=== PATIENT | male | born 1965 | race Caucasian/White ===

== ENCOUNTER 2022-03-03 16:53 | Emergency (ER) | payer MEDICAID ==
[2022-03-03 18:13] LABS: ESTIMATED GFR 70 mL/min (>60)
[2022-03-03] MEDS: Ketorolac 30 MG/ML SDV IM ONE (19:02)
[2022-03-03] MEDS: Ketorolac 30 MG/ML SDV ONE (19:08)
[2022-03-03] MEDS: Sodium Chloride 0.9% 50 ML SDV FLUSH SCH (19:25)
[2022-03-03] MEDS: Iopamidol 612 MG/ML 100 ML Bottle IV PRN (19:25)
[2022-03-03] MEDS ORDERED: Naproxen 500 MG Tab ONE (20:00)
[2022-03-03] MEDS: Acetaminophen 500 MG Tab PO ONE (20:04)
[2022-03-03 20:43] VITALS: BP 156/99; PULSE 67
== END 2022-03-03 20:25 | disposition home or self-care (01) ==
LOC: LB.ED 16:53
DX: K86.0 Alcohol-induced chronic pancreatitis (principal)
CPT/HCPCS: 36415; 74177; 80053; 80307; 81003; 83690; 85025; 93005; 93010; 96372; 99283; 99284; A9270-GY; J1885; Q9967

== ENCOUNTER 2022-03-08 20:55 | Emergency (ER) | payer MEDICAID ==
[2022-03-08] MEDS ORDERED: HYDROmorphone 2 MG/ML Syringe IVPUSH ONE (21:09)
[2022-03-08] MEDS ORDERED: Ketorolac 30 MG/ML SDV IVPUSH ONE (21:09)
[2022-03-08] MEDS ORDERED: Ketorolac 30 MG/ML SDV ONE (21:37)
[2022-03-08] MEDS ORDERED: HYDROmorphone 2 MG/ML Syringe ONE (21:37)
== END 2022-03-08 22:24 | disposition home or self-care (01) ==
LOC: LB.ED 20:55
DX: R10.84 Generalized abdominal pain (principal); F17.210 Nicotine dependence, cigarettes, uncomplicated; Z79.899 Other long term (current) drug therapy
CPT/HCPCS: 36415; 80053; 80307; 81001; 83690; 85025; 96374; 96375; 99284; J1170; J1885

== ENCOUNTER 2022-03-17 00:24 | Emergency (ER) | payer MEDICAID ==
[2022-03-17] MEDS: Sodium Chloride 0.9% 1,000 ML IV ONE (00:53)
[2022-03-17 01:21] VITALS: BP 144/98; PULSE 88
[2022-03-17 01:34] LABS: ESTIMATED GFR 75 mL/min (>60)
[2022-03-17] MEDS: Ketorolac 30 MG/ML SDV IVPUSH ONE (02:14)
[2022-03-17] MEDS: Ketorolac 30 MG/ML SDV ONE (02:20)
[2022-03-17] MEDS: GI Cocktail Oral Solution 30 ML PO ONE (02:27)
== END 2022-03-17 02:43 | disposition home or self-care (01) ==
LOC: LB.ED 00:24
DX: R10.84 Generalized abdominal pain (principal)
CPT/HCPCS: 36415; 80053; 80307; 81001; 83690; 83735; 85025; 96361; 96374; 99283; 99284-25; A9270-GY; J1885; J7030

== ENCOUNTER 2022-03-28 08:24 | Emergency (ER) | payer MEDICAID ==
[2022-03-28] MEDS: Ketorolac 60 MG/2 ML SDV IM ONE (09:04)
[2022-03-28] MEDS: LORazepam 2 MG/ML SDV IM ONE (09:05)
[2022-03-28] MEDS: Ketorolac 60 MG/2 ML SDV ONE (09:42)
[2022-03-28] MEDS: LORazepam 2 MG/ML SDV ONE (09:42)
== END 2022-03-28 09:26 | disposition home or self-care (01) ==
LOC: LB.ED 08:24
DX: R10.84 Generalized abdominal pain (principal); F17.210 Nicotine dependence, cigarettes, uncomplicated; Z79.899 Other long term (current) drug therapy
CPT/HCPCS: 96372; 99283; J1885; J2060

== ENCOUNTER 2025-02-25 00:35 | Emergency (ER) | payer MEDICARE | END 2025-02-25 01:33 | disposition home or self-care (01) | LOC: MERGE 00:35 → LB.ED 00:35 | DX: K57.92 Diverticulitis of intestine, part unspecified, without perforation or abscess without bleeding (principal) | CPT/HCPCS: 99284; A0425; A0427 ==